=== PATIENT | male | born 1980 | race Caucasian/White ===

== ENCOUNTER 2018-02-09 13:41 | Emergency (ER) | payer MEDICAID ==
[2018-02-09] MEDS: DEXAMETHASONE 10 MG/ML 1 ML INJ IV (15:19)
[2018-02-09 15:36] LABS: ADD MAN DIFF? NO
[2018-02-09] MEDS: CEFAZOLIN 2 GM/50 ML (PMX) 50 ML IVPB (15:37)
[2018-02-09 15:39] LABS: ABNORMAL IP MESSAGE 1; BASOPHIL # 0.1 10^3/ul (0.0-0.1); BASOPHILS % 0.9 % (0.0-2.0); EOSINOPHILS # 0.5 10^3/ul (0.0-0.5); EOSINOPHILS % 4.4 % (0.0-7.0); HEMATOCRIT 39.6 % (42.0-52.0); HEMOGLOBIN 13.5 g/dl (14.0-18.0); LYMPHOCYTES # 2.2 10^3/ul (0.8-2.9); LYMPHOCYTES % 21.5 % (15.0-51.0); MEAN CORPUSCULAR HGB CONC 34.1 g/dl (32.0-37.0); MEAN PLATELET VOLUME 10.6 fl (7.4-10.4); MONOCYTE # 0.6 10^3/ul (0.3-0.9); NEUTROPHILS % 66.7 % (39.0-77.0); PLATELET COUNT 77 10^3/UL (140-415); POSITIVE DIFF @See below; RED BLOOD COUNT 4.66 10^6/ul (4.70-6.10); RED CELL DISTRIBUTION WIDTH 12.8 % (11.5-14.5)
[2018-02-09 15:39] LABS: WHITE BLOOD COUNT 10.4 10^3/ul (4.8-10.8)
[2018-02-09 15:59] LABS: ANION GAP 19 (8-16); BLOOD UREA NITROGEN 17 mg/dl (7-20); CALCIUM 9.6 mg/dl (8.4-10.2); CARBON DIOXIDE 27 mmol/L (21-31); CHLORIDE 104 mmol/L (97-110); CREATININE 0.71 mg/dl (0.61-1.24); GLUCOSE 177 mg/dl (70-220); POTASSIUM 4.3 mmol/L (3.5-5.1)
[2018-02-09 16:10] LABS: SODIUM 146 mmol/L (135-144)
[2018-02-09] MEDS: SOD CHLORIDE 0.9% 100 ML (16:18)
[2018-02-09] MEDS: IOHEXOL 300MG/ML 150 ML BTL (16:19)
== END 2018-02-09 17:47 | disposition home or self-care (01) ==
LOC: FTE 13:41
DX: L03.211 Cellulitis of face (principal); E11.9 Type 2 diabetes mellitus without complications; Z79.4 Long term (current) use of insulin
CPT/HCPCS: 70486; 80048; 85025; 96374; 96375; 99285-25